=== PATIENT | female | born 1985 | race Caucasian/White ===

== ENCOUNTER → 2024-06-06 13:57 | Outpatient (REF) | payer BC, SELFPAY | LOC: RAD 13:57 | PROVIDERS: ATTENDING PHYSICIAN Obstetrics & Gynecology; FAMILY PHYSICIAN Internal Medicine | DX: N84.1 Polyp of cervix uteri (principal) | CPT/HCPCS: 76830; 76856 ==

== ENCOUNTER → 2024-08-02 09:28 | Outpatient (REF) | payer BC, SELFPAY | LOC: RAD 09:28 | PROVIDERS: ATTENDING PHYSICIAN Obstetrics & Gynecology; FAMILY PHYSICIAN Internal Medicine | DX: N83.299 Other ovarian cyst, unspecified side (principal); M54.2 Cervicalgia | CPT/HCPCS: 72050; 76830; 76856 ==

== ENCOUNTER 2024-11-10 20:59 | Emergency (ER) | payer BC, SELFPAY ==
[2024-11-10] VITALS (8 sets, daily range): BP systolic 119–147; BP diastolic 53–100; PULSE 79–85
--- NOTE | 2024-11-10 21:38 | ED.GENMED ---
ED Provider Triage
<Ángel Dejesus MD, Resident - Last Filed: 11/11/24 01:09>
-
Patient seen by provider in Triage?: Seen in Triage
History of Present Illness
<Ángel Dejesus MD, Resident - Last Filed: 11/11/24 01:09>
General
Chief Complaint: Fainting Sensation
Source: patient
Exam Limitations: none
Time Seen by Provider: 11/10/24 21:12
History of Present Illness
History of Present Illness:
39-year-old female who presents for racing heart, palpitations, lightheadedness since her breast reconstruction surgery on 10/26/2024 ( DCIS breast cancer history). Most recent surgery was a bilateral flank liposuction for her breast reconstruction
surgery. All of the symptoms are aggravated on exertion. She has a pulse oximeter at home and it measures her sitting heart rate which is normally at 60 at around 80 to 100 bpm. No chest pain, calf pain, shortness of breath, nausea, vomiting,
cough. She is on low dose ozempic.
Past History
<Ángel Dejesus MD, Resident - Last Filed: 11/11/24 01:09>
Past History
ED Past Medical History: Other (Migraines, anxiety)
ED Past Surgical History: Orthopedic
Social History
Tobacco: Non-smoker
Alcohol: None
Living: with family
Employment: Employed
Review of Systems
<Ángel Dejesus MD, Resident - Last Filed: 11/11/24 01:09>
Review of Systems
All Other Systems: ROS reviewed and negative except as documented in HPI and ROS
Phy Exam
<Ángel Dejesus MD, Resident - Last Filed: 11/11/24 01:09>
General Physical Exam
General Presentation: well appearing and no apparent distress
General Skin: warm and dry
General Habitus: normal
General Mental: alert
Cardiovascular Exam
Cardiovascular Exam: regular rate/rhythm, no edema and no gallop
Pulmonary Exam
Pulmonary Exam: lungs clear and no respiratory distress
Gastrointestinal Exam
Gastrointestinal Exam: normal bowel sounds, non tender, soft, non distended, no bruit and other (Patient is wearing an abdominal binder)
Neurological Exam
Neurological Exam: alert, oriented x3, CN II-XII intact, no motor deficits, normal reflexs, no sensory deficits and speech normal
Musculoskeletal Exam
Musculoskeletal Exam: full ROM and no edema
Course
<Ángel Dejesus MD, Resident - Last Filed: 11/11/24 01:09>
Orders/Labs/Results
Orders:
Orders
11/10/24 21:07
Electrocardiogram (*1) Urgent
Reason for Study: Vertigo / Dizzy
EKG- Treatment ONCE
11/10/24 21:41
CBC/With Diff [Complete Blood Count/With Diff] Urgent
CMP [Comprehensive Metabolic Panel] Urgent
Magnesium Urgent
Comment: ADD ON
TSH Reflex To Free T4 Urgent
Comment: ADD ON
11/10/24 22:06
CT Chest PE Study Urgent
Comment:
Reason For Exam: palpitations, SOB, post op
Cardiac Monitoring- Treatment ONCE
Orthostatic VS- Treatment ONCE
11/10/24 22:07
Add On- LAB Urgent
Tests Added?: TSH w reflex to free T-4
11/10/24 22:08
0.9% Sodium Chloride 1000 ml [Nss] 1,000 ml IV BOLUS
11/10/24 22:26
Oxycodone/Acetaminophen [Percocet 5/325] 1 tablet PO NOW STA
11/10/24 23:38
Add On- LAB Urgent
Tests Added?: Mg
Abnormal Lab Results
11/10/24
21:41
Absolute Monos (auto) 0.8 H 10^3/uL
(0.1-0.6)
Alkaline Phosphatase 37 L U/L
(38-126)
11/10/24 21:41
11/10/24 21:41
Vital Signs
Initial and Last Documented VS:
Initial Vital Signs
Temp Pulse Resp BP Pulse Ox
98.7 F 90 18 147/97 98
11/10/24 21:01 11/10/24 21:01 11/10/24 21:01 11/10/24 21:01 11/10/24 21:01
Last Documented Vital Signs
Temp Pulse Resp BP Pulse Ox
98.7 F 84 10 110/68 98
11/10/24 21:01 11/11/24 00:30 11/11/24 00:30 11/11/24 00:00 11/11/24 00:30
<Bela Herrera, DO - Last Filed: 11/11/24 00:39>
Orders/Labs/Results
Orders:
Orders
11/10/24 21:07
Electrocardiogram (*1) Urgent
Reason for Study: Vertigo / Dizzy
EKG- Treatment ONCE
11/10/24 21:41
CBC/With Diff [Complete Blood Count/With Diff] Urgent
CMP [Comprehensive Metabolic Panel] Urgent
Magnesium Urgent
Comment: ADD ON
TSH Reflex To Free T4 Urgent
Comment: ADD ON
11/10/24 22:06
CT Chest PE Study Urgent
Comment:
Reason For Exam: palpitations, SOB, post op
Cardiac Monitoring- Treatment ONCE
Orthostatic VS- Treatment ONCE
11/10/24 22:07
Add On- LAB Urgent
Tests Added?: TSH w reflex to free T-4
11/10/24 22:08
0.9% Sodium Chloride 1000 ml [Nss] 1,000 ml IV BOLUS
11/10/24 22:26
Oxycodone/Acetaminophen [Percocet 5/325] 1 tablet PO NOW STA
11/10/24 23:38
Add On- LAB Urgent
Tests Added?: Mg
Abnormal Lab Results
11/10/24
21:41
Absolute Monos (auto) 0.8 H 10^3/uL
(0.1-0.6)
Alkaline Phosphatase 37 L U/L
(38-126)
11/10/24 21:41
11/10/24 21:41
Vital Signs
Initial and Last Documented VS:
Initial Vital Signs
Temp Pulse Resp BP Pulse Ox
98.7 F 90 18 147/97 98
11/10/24 21:01 11/10/24 21:01 11/10/24 21:01 11/10/24 21:01 11/10/24 21:01
Last Documented Vital Signs
Temp Pulse Resp BP Pulse Ox
98.7 F 84 10 110/68 98
11/10/24 21:01 11/11/24 00:30 11/11/24 00:30 11/11/24 00:00 11/11/24 00:30
<Ángel Dejesus MD, Resident - Last Filed: 11/11/24 01:09>
MDM/Problems Addressed
Differential Diagnosis Includes:
PE, Post operative blood loss, [place], anxiety, arrhythmia,
MDM/Problems Addressed:
- CBC unremarkable
- CMP unremarkable
- EKG normal
- CTA chest negative for pulmonary embolism
- Cardiac monitoring ordered
- TSH normal
- Fluids ordered
- Will discharge home with plans to follow up with pcp within 7 days
<Ángel Dejesus MD, Resident - Last Filed: 11/11/24 01:09>
*Pulse Oximetry
SaO2: 98
Oxygen Mode of Delivery: Room air
<Bela Herrera DO - Last Filed: 11/11/24 00:39>
*Radiology
Radiology exam reviewed: radiology read reviewed
*Pulse Oximetry
Patient hypoxic: no
*EKG
Interpreted by ED Provider?: Yes
Interpretation: normal
Comparison EKG: no changes (Unchanged from previous December 2022)
Rate: normal
Rhythm: sinus
[place]: normal axis
Interval: normal interval
QRS Pattern: normal QRS
Ischemia: no ischemia
*Buttonhole Marker Interpretation
Rate: normal
Interpretation: normal
Rhythm: sinus
*Critical Care Note
Total Time (30-74mins, 75-104mins- exclusive of procedures): Not Applicable
ED Attending Note
<Ángel Dejesus MD, Resident - Last Filed: 11/11/24 01:09>
-
Portions of this chart may have been created with voice recognition software.� Occasional wrong word or��sound alike� substitutions may have occurred due to the inherent limitations of voice recognition software.
<Bela Herrera DO - Last Filed: 11/11/24 00:39>
ED Attending Note
Patient seen and examined by attending physician: Yes
I performed the substantive portion of visit, reviewed & personally made and approve the management plan that is documented in note by myself or KATERIN.: Yes
ED Attending Note:
This is a 39-year-old woman with history of breast cancer/DCIS status post bilateral mastectomy/immediate breast implant reconstruction in 2023. Postop complication of hematoma, infection requiring implant removal, lengthy IV antibiotics. She
continues to follow with the plastic surgeon and has undergone several breast reconstruction surgeries consisting of lipo suction/fat transplantation, most recently October 30. This most recent surgery she underwent significant liposuction
bilateral flank regions with transfer to bilateral breasts. She has been compliant with abdominal binder. Since her surgery 1-1/2 weeks ago she complains of intermittent palpitations, lightheadedness, worse with standing and with ambulation. She
does admit to some chronic brief lightheadedness with standing which generally resolves within a second or 2. Current symptoms have been persisting, worse with ambulation. She denies shortness of breath but admits to feeling somewhat off balance,
clumsy. No headache, no weakness, no fevers or chills, no cough. Appetite has been good. She does admit to occasional nausea which is not uncommon for her. She is maintained on low-dose Ozempic. She denies leg pain or swelling.
Her past medical history includes Madie-Danlos syndrome, DCIS breast cancer, anxiety, migraine headaches, lumbar disc disease.
Her daily medications include Ozempic, she takes as needed Benadryl, as needed lorazepam, currently prescribed Percocet for postop pain.
She denies risk of , last menstrual period October 22, normal and on time. She does have a history of heavy menses and underwent D&C October 07.
39-year-old woman appears her stated age, bright and alert, pleasant, appears in no acute distress. Afebrile.
HEENT: Oral mucosa is moist. Anicteric.
Neck is supple, nontender, no JVD. No adenopathy.
Heart is regular rate and rhythm. No murmur no rub.
Lungs are clear to auscultation. No respiratory distress. Bilateral breasts without erythema nor hematoma nor palpable tenderness.
Abdomen: Abdominal binder in place. No palpable tenderness. Normoactive bowel sounds.
Extremities: No clubbing or cyanosis no edema. Peripheral pulses are full and equal. Nontender. Negative Homans' sign.
Skin is warm and dry, normal color. Good turgor. No rash.
No focal neurodeficits. Motor strength is 5/5.
Concern for postop anemia, electrolyte abnormality, PE, pneumonia, thyroid disorder, anxiety, postop pain, arrhythmia, vertigo.
Will check labs, including thyroid function, will check orthostatic vital signs.
EKG shows normal sinus rhythm, normal axis, normal intervals, no acute ST-T wave abnormalities. Similar and unchanged from previous EKG December 2022.
As patient is recently postop must consider PE thus we will check CT of the chest/PE study.
Will hydrate with IV fluids and continue monitoring and evaluation advisor.
23:40
Orthostatic vital signs are negative.
Monitor continues to show normal sinus rhythm without arrhythmia/ectopy.
Labs are unremarkable.
CT/PE study is unremarkable save for mild bilateral platelike atelectasis at the bases.
Patient requests recheck magnesium as she took a dose of magnesium this morning and felt improved for a few hours and then symptoms returned. As she has had no episodes of vomiting no diarrhea, appetite has been good, attempting to stay
well-hydrated, there should be no reason for hypomagnesemia but can certainly add to blood in the lab.
Overall, well in appearance. I suspect her symptoms may be just postop in nature. There is no evidence of anemia nor infection nor PE nor arrhythmia.
Will plan for discharge to home with recommendation for follow-up with her PCP as well as her plastic surgeon.
Discharge Plan
Departure
Patient Disposition: Home (Routine Discharge)
Date of Disposition: 11/11/24
Time of Disposition: 00:30
Patient with high blood pressure during this ER visit?: No
Condition: Good
Discharge Problem:
Palpitations
Instructions: Palpitations
Prescriptions:
No Action
PNV no.[id number] acid 1 EACH tablet
1 ea PO DAILY
prednisone 10 mg tablet
See Rx Instructions .ROUTE .COMPLEX Qty: 45 0RF
Rx Instructions:
5 tabs day 1-3, 4 tabs day 4-6, 3 tabs day 7-9, 2 tabs day 10-12, 1 tab day 13-15
morphine 15 mg tablet
15 mg PO Q6H PRN (Reason: Pain) Qty: 7 0RF
tizanidine [Zanaflex] 4 mg capsule
4 mg PO Q8H PRN (Reason: muscle spasticity) Qty: 10 0RF
ondansetron 4 mg Tablet,Disintegrating
4 mg PO TIDPRN PRN (Reason: nausea/vomiting) Qty: 12 0RF
oxycodone 5 MG tablet
5 mg PO Q4HPRN PRN (Reason: pain) Qty: 10 0RF
Referrals:
UNKNOWN - PT DOES,NOT KNOW [Unknown Provider]
Activity Restrictions/Additional Instructions:
Stay well-hydrated on a daily basis.
Follow-up with your plastic surgeon this week for recheck.
Follow-up with your primary care physician as well.
Interventions
Interventions:
*Risk Screen - Suicide Last Done: 11/10/24 21:01
*General Assessment Last Done: 11/10/24 21:01
*Neglect/Abuse Screening Last Done: 11/10/24 21:01
*ED- Fall Risk Assessment Last Done: 11/10/24 21:46
*ED COVID-19 Vaccine History Last Done: 11/10/24 21:46
ED- Cardiac Assessment Last Done: 11/10/24 21:58
ED- Neurological Assessment Last Done: 11/10/24 21:58
Discharge Date and Time
Print Language: ROMANIAN
[2024-11-10 21:48] LABS: Hematocrit 38.0 % (37.0-47.0); Hemoglobin 12.8 g/dL (12.0-16.0); Mean Corp Hgb Conc. 33.7 g/dL (33.0-37.0); Mean Corpuscular Volume 89.0 fL (81.0-99.0); Nucleated Red Blood Cells % 0 %; Platelet Count 230 10^3/uL (130-400); Red Cell Dist. Width 12.3 % (11.5-14.5)
[2024-11-10 22:22] LABS: ALT (SGPT) 18 U/L (0-35); AST (SGOT) 21 U/L (14-36); Albumin 4.2 g/dl (3.5-5.0); Alkaline Phosphatase 37 U/L (38-126); Blood Urea Nitrogen 17 mg/dl (7-17); Calcium 9.5 mg/dl (8.4-10.2); Carbon Dioxide 25 mmol/L (22-30); Chloride 107 mmol/L (98-107); Glucose 96 mg/dl (70-99); Potassium 4.0 mmol/L (3.5-5.1); Sodium 136 mmol/L (135-145); Total Protein 6.5 g/dl (6.3-8.2); eGFR > 60.00
[2024-11-10] MEDS: NSS 1000 IV (22:30)
[2024-11-10] MEDS: PERCOCET 5/325 1 TABLET PO (22:30)
[2024-11-11] VITALS: BP 110/68
[2024-11-11 00:17] LABS: Magnesium 2.2 mg/dl (1.6-2.3)
== END 2024-11-11 01:13 | disposition home or self-care (01) ==
LOC: EMR 20:59
PROVIDERS: EMERGENCY PHYSICIAN Emergency Medicine; FAMILY PHYSICIAN Internal Medicine
DX: R00.2 Palpitations (principal); J98.11 Atelectasis; F41.9 Anxiety disorder, unspecified; M51.369 Other intervertebral disc degeneration, lumbar region without mention of lumbar back pain or lower extremity pain; Z86.000 Personal history of in-situ neoplasm of breast; Z90.13 Acquired absence of bilateral breasts and nipples; Z98.82 Breast implant status
CPT/HCPCS: 99284; 96360; 71275; 80053; 83735; 84443; 85025; 93005; Q9967

== ENCOUNTER → 2024-11-15 10:33 | Outpatient (REF) | payer BC, SELFPAY | LOC: RAD 10:33 | PROVIDERS: ATTENDING PHYSICIAN Internal Medicine | DX: Q79.69 Other Ehlers-Danlos syndromes (principal); M54.2 Cervicalgia | CPT/HCPCS: 72040 ==